=== PATIENT | male | born 1960 | race Caucasian/White ===

== ENCOUNTER 2018-01-14 15:12 | Emergency (ER) | payer SELFPAY ==
[~2018-01-14] VITALS: Ht 180.3 cm; Wt 69.3 kg
[2018-01-14] MEDS ORDERED: CEFTRIAXONE PMX 1GM/50ML 50 ML IVPB ONE (15:30)
[2018-01-14] MEDS ORDERED: SODIUM CHLORIDE FLUSH 10ML SYR IVF ONE (15:30)
[2018-01-14] MEDS ORDERED: CEFTRIAXONE PMX 1GM/50ML 50 ML ONE (15:39)
[2018-01-14] MEDS ORDERED: DIPH,PERTUSS(ACELL),TET VAC/PF 0.5 ML IM-VACC ONE ×2 (15:39→16:00)
[2018-01-14] MEDS ORDERED: BACITRACIN ZINC OINT 500U/GM, 0.9 GM ONE (16:11)
[2018-01-14 16:18] VITALS: BP 144/85
== END 2018-01-14 16:38 | disposition home or self-care (01) ==
LOC: ED 15:41
DX: L03.011 Cellulitis of right finger (principal)
CPT/HCPCS: 29130; 73140; 90471; 90715; 96365; 99284; J0696

== ENCOUNTER 2018-01-14 21:02 | Emergency (ER) | payer SELFPAY ==
[~2018-01-14] VITALS: Ht 180.3 cm; Wt 69.3 kg
[2018-01-14] MEDS ORDERED: SODIUM CHLORIDE 0.9% 1,000ML IVBOLUS ONE (22:00)
[2018-01-14] MEDS ORDERED: CLINDAMYCIN PMX 600MG/50ML 50 ML IV ONE (22:00)
[2018-01-14] MEDS ORDERED: SODIUM CHLORIDE FLUSH 10ML SYR IVF ONE (22:00)
[2018-01-14] MEDS ORDERED: LIDOCAINE 2%, 10ML INFIL ONE (22:00)
[2018-01-14] MEDS ORDERED: CLINDAMYCIN PMX 600MG/50ML 50 ML ONE (22:09)
[2018-01-14] MEDS ORDERED: LIDOCAINE-MPF 2% ,5ML ONE (22:17)
[2018-01-14 22:37] LABS: BASOPHILS # (AUTO) 0.02 x10^3/uL (0-0.1); BASOPHILS % (AUTO) 0 % (0-1); EOSINOPHILS # (AUTO) 0.16 x10^3/uL (0-0.4); EOSINOPHILS % (AUTO) 1 % (1-7); LYMPHOCYTES # (AUTO) 1.09 x10^3/uL (1-3.4); LYMPHOCYTES % (AUTO) 8 % (22-44); MD NO; MEAN CORPUSCULAR HEMOGLOBIN 31.8 pg (27.5-34.5); MEAN CORPUSCULAR VOLUME 93.7 fL (81-97); MEAN PLATELET VOLUME 8.4 fL (7.4-10.4); MONOCYTES # (AUTO) 0.86 x10^3/uL (0.2-0.8); MONOCYTES % (AUTO) 6 % (2-9); NEUTROPHILS % (AUTO) 85 % (42-75); PLATELET COUNT 207 x10^3/uL (130-400); RED BLOOD COUNT 4.75 x10^6/uL (4.38-5.82); RED CELL DISTRIBUTION WIDTH 13.4 % (9.4-14.8)
[2018-01-14 22:46] LABS: ANION GAP 8 mmol/L (5-15); CALCIUM 8.5 mg/dL (8.5-10.1); CHLORIDE 109 mmol/L (98-107); CREATININE 1.09 mg/dL (0.7-1.3); HIGH-SENSITIVITY CRP 0.23 mg/dL (0.02-0.30)
[2018-01-14 23:25] LABS: HCT (SEDRATE) 44.5 % (39.2-51.8)
[2018-01-14 23:43] VITALS: BP 118/76
== END 2018-01-15 00:20 | disposition home or self-care (01) ==
LOC: ED 21:45
DX: L03.011 Cellulitis of right finger (principal)
CPT/HCPCS: 10060; 36415; 80048; 85025; 85651; 86140; 86141; 87040; 96365; 99284; J3490; J7030